=== PATIENT | male | born 1955 | race Caucasian/White ===

== ENCOUNTER 2021-01-27 08:26 | Inpatient (IN) ==
--- NOTE | 2021-01-08 11:50 | PAT Medication Instructions ---
Medication Instructions Date of Service January 08, 2021 Home Medications acetaminophen [Tylenol Arthritis Pain] 1,300 mg PO Q12H PRN ascorbic acid (vitamin C) [Vitamin C] 500 mg PO QAM aspirin [Aspir-81] 81 mg PO QAM atorvastatin 20 mg PO PM cetirizine 10 mg PO QAM cholecalciferol (vitamin D3) [Vitamin D3] 50 mcg PO QAM cyanocobalamin (vitamin B-12) 1,000 mcg PO QAM fluticasone propionate 1 spray INTRANASAL QAM hydrochlorothiazide 25 mg PO QAM lactulose 30 g PO DAILY PRN melatonin 10 mg PO HS metformin 500 mg PO BID metoprolol tartrate 25 mg PO BID omeprazole 20 mg PO QAM ondansetron 4 mg PO Q6H PRN oxycodone 10 mg PO 5XD pregabalin 150 mg PO BID warfarin 7.5 mg PO UD warfarin 10 mg PO UD ASK your prescriber and surgeon warfarin 7.5 mg PO UD warfarin 10 mg PO UD DO NOT take the morning of surgery ascorbic acid (vitamin C) [Vitamin C] 500 mg PO QAM cetirizine 10 mg PO QAM cholecalciferol (vitamin D3) [Vitamin D3] 50 mcg PO QAM cyanocobalamin (vitamin B-12) 1,000 mcg PO QAM hydrochlorothiazide 25 mg PO QAM lactulose 30 g PO DAILY PRN metformin 500 mg PO BID Take morning of surgery With a small sip of water, OTHERWISE NOTHING TO EAT OR DRINK AFTER MIDNIGHT: acetaminophen [Tylenol Arthritis Pain] 1,300 mg PO Q12H PRN (okay to take up to 4 hours prior to surgery if needed) aspirin [Aspir-81] 81 mg PO QAM (unless told otherwise by surgeon) fluticasone propionate 1 spray INTRANASAL QAM metoprolol tartrate 25 mg PO BID omeprazole 20 mg PO QAM ondansetron 4 mg PO Q6H PRN (if needed) oxycodone 10 mg PO 5XD (okay to take up to 4 hours prior to surgery if needed) pregabalin 150 mg PO BID Take evening before surgery acetaminophen [Tylenol Arthritis Pain] 1,300 mg PO Q12H PRN (if needed) atorvastatin 20 mg PO PM lactulose 30 g PO DAILY PRN (if needed) melatonin 10 mg PO HS metformin 500 mg PO BID metoprolol tartrate 25 mg PO BID ondansetron 4 mg PO Q6H PRN (if needed) oxycodone 10 mg PO 5XD pregabalin 150 mg PO BID Other Notes If you have any questions please call us at [phone] or [phone] or [phone] or [phone]
--- NOTE | 2021-01-09 14:23 | Anesthesiology Consultation ---
Date of Service January 09, 2021 Assessment & Plan (1) Encounter for pre-operative examination: Chart Review Chart Review: Pending: Refer to Additional Notes / Consult section (pending surgeon PCP clearance and preop Covid testing results ) and Patient seen in Pre Admission Testing -Pending surgeon ordered PCP clearance (done earlier this week) - Check BSG AM DOS - Check coags AM DOS Per PAT appt on 01/09/21, pt denies recent travel. No known Covid positive contacts or Covid related symptoms. No known Covid infection in the past 90 days. Preop Covid testing scheduled 01/23/21= will await results. Educated on importance of self quarantining, social distancing and wearing mask in public both for the patient and household contacts. Teaching & Discussion Pre-Anesthesia Teaching/Discussion Notes: Instructed NPO after midnight before surgery,except medications with 15 cc of water. Medication instructions provided according to the [facility] guidelines. History Surgery Operation Date: 01/27/21 07:00 Proposed Procedures p Right Total Knee Arthroplasty - Mino Harper DO Height/Weight Height: 5 ft 10 in Weight: 134.8 kg Allergies Allergy/AdvReac Type Severity Reaction Status Date / Time gabapentin AdvReac Mild TIRED,LAZY Verified 01/08/21 11:04 Medications Home Medications Medication Instructions Recorded Confirmed Last Taken acetaminophen [Tylenol Arthritis 1,300 mg PO Q12H PRN 05/15/20 01/08/21 Unknown Pain] ascorbic acid (vitamin C) [Vitamin 500 mg PO QAM 05/15/20 01/08/21 Unknown C] aspirin [Aspir-81] 81 mg PO QAM 05/15/20 01/08/21 Unknown cholecalciferol (vitamin D3) 50 mcg PO QAM 05/15/20 01/08/21 Unknown [Vitamin D3] cyanocobalamin (vitamin B-12) 1,000 mcg PO QAM 05/15/20 01/08/21 Unknown fluticasone propionate 1 spray INTRANASAL QAM 05/15/20 01/08/21 Unknown hydrochlorothiazide 25 mg PO QAM 05/15/20 01/08/21 Unknown lactulose 30 g PO DAILY PRN 05/15/20 01/08/21 Unknown melatonin 10 mg PO HS 05/15/20 01/08/21 Unknown metoprolol tartrate 25 mg PO BID 05/15/20 01/08/21 Unknown omeprazole 20 mg PO QAM 05/15/20 01/08/21 Unknown ondansetron 4 mg PO Q6H PRN 05/15/20 01/08/21 Unknown oxycodone 10 mg PO 5XD 05/15/20 01/08/21 Unknown pregabalin 150 mg PO BID 05/15/20 01/08/21 Unknown warfarin 7.5 mg PO UD 05/15/20 01/08/21 Unknown warfarin 10 mg PO UD 01/08/21 01/08/21 Unknown atorvastatin See Rx Instructions .ROUTE .COMPLEX 01/09/21 01/09/21 Unknown lidocaine 2 patch TOPICAL DAILY 01/09/21 01/09/21 Unknown loratadine 10 mg PO DAILY 01/09/21 01/09/21 Unknown metformin 1,000 mg PO BID 01/09/21 01/09/21 Unknown polyvinyl alcohol [Artificial 1 drp QID PRN 01/09/21 01/09/21 Unknown Tears (polyvin alc)] sildenafil 100 mg PO DAILY PRN 01/09/21 01/09/21 Unknown Past Medical History Medical History (Updated 01/09/21 @ 15:14 by Veronica Mack PA-C) Atrial fibrillation HX OF- S/P ABLATION ON COUMADIN Chronic back pain LLE radiculopathy Diabetes mellitus, type 2 Well controlled and stable DVT (deep venous thrombosis) post-op left KNEE surgery (1999) X 2- ON Coumadin- no issues since Enlargement of thyroid s/p needle biopsy- under observation - had thyroid u/s last week- scheduled for biopsy in future GERD (gastroesophageal reflux disease) Well controlled and stable Hyperlipidemia Hypertension Myocardial Infarction "silent" OR dx years ago Sleep apnea CPAP Exercise / Class Metabolic Activity III < 4 Walking/Shop/Light housework (no chest pain or SOB with flat surface ambulation- uses cane ) Past Family History Family History Other No family history of adverse response to anesthesia Past Surgical History Surgical History History of cardiac radiofrequency ablation 2013 ([facility]) History of colonoscopy History of herniorrhaphy UMBILICAL AND HIATAL HERNIA REPAIR History of tooth extraction History of total knee replacement LEFT Hx of LASIK Past Anesthesia History No Hx of Anesthesia Complications (with exception - many years ago- was being put under general anesthesia and could not breath prior to being put under ) and No Family Hx of Anesthesia Complications History of PONV No Hx of PONV and No Hx of Motion Sickness Social History Smoking Status: Former smoker Do You Dip or Chew Tobacco: No Smoking End Date: 38 YEARS AGO Hx Alcohol Use: Yes Alcohol type: beer alcohol intake frequency: a few times a month Hx Substance Use: No Review of Systems RITCHIE- chronic and stable Hx of blood transfusion- when in [place] Patient denies chest pain, shortness of breath, cough, wheezing, palpitations. No hx of seizures, stroke. Physical Exam Vital Signs VITALS BP144/80 P 80 TEMP 98.4 SP02 94% RESP 16 Constitutional no acute distress ENMT Mouth: no TMJ clicking Thyromental Distance: > or= 3.5 Finger Breadths (4.0) Mallampati Class: II Partial denture on top and bottom Neck neck extension not limited Respiratory normal respiratory effort; no respiratory distress Auscultation: lungs clear to auscultation bilaterally; no wheezes Cardiovascular Rate/Rhythm: regular rate and regular rhythm Heart Sounds: no murmur Vessels: no carotid bruit Musculoskeletal Spine: no pain with cervical ROM Extremities: extremities normal to inspection Psychiatric Orientation: alert Testing Laboratory Results 01/09/21 15:04 01/09/21 15:01 PT 22.3 Seconds (9.0-12.0) H 01/09/21 15:04 INR 2.4 (0.9-1.1) H 01/09/21 15:04 APTT 44.0 Seconds (21.0-31.0) H 01/09/21 15:04 Hemoglobin A1c 6.1 % (4.5-5.6) H 01/09/21 15:04 Urine Color Yellow 01/09/21 15:04 Urine Appearance Clear (Clear) 01/09/21 15:04 Urine pH 5.0 (4.5-7.5) 01/09/21 15:04 Ur Specific [place] 1.018 (1.000-1.030) 01/09/21 15:04 Urine Protein Negative (Negative) 01/09/21 15:04 Urine Glucose (UA) Negative (Negative) 01/09/21 15:04 Urine Ketones Negative (Negative) 01/09/21 15:04 Urine Nitrite Negative (Negative) 01/09/21 15:04 Ur Leukocyte Esterase Negative (Negative) 01/09/21 15:04 Blood Type O Negative 01/09/21 15:04 Antibody Screen NEGATIVE 01/09/21 15:04 12/17/20= HGB A1C= 6.1 Electrocardiogram Date: 01/09/21 Findings: + NSR @ (74bpm) Normal EKG. Chest X-Ray Date: 01/09/21 Findings: + NAD and + cardiomegaly (mild) FINDINGS: No pneumothorax or pleural effusion is noted. No consolidation is identified. There is no evidence for pulmonary edema. There is mild cardiome lucinda. Widening of the right paratracheal stripe is unchanged and likely due to vessels. Echocardiogram Date: 04/12/17 LV Function: normal RWMA: + none Other Findings: no LVH EF 60%. No RWMA. Mild MR. Mild TR. Moderate pulmonary HTN. Consistent with elevated RAP. Stress Test Date: 05/24/20 Type: nuclear SPECT perfusion imaging demonstrates no evidence of ischemia or infarct. Gated imaging demonstrates normal LV wall motion and contractility. LVEF 70%.
--- NOTE | 2021-01-09 15:26 | XRay Report ---
XR chest Pre-admission PA/Lat CLINICAL HISTORY: Preoperative evaluation. COMPARISON STUDY: Chest radiograph May 23, 2020. FINDINGS: No pneumothorax or pleural effusion is noted. No consolidation is identified. There is no e vidence for pulmonary edema. There is mild cardiomegaly. Widening of the right paratracheal stripe is unchanged and likely due to vessels. IMPRESSION: 1. No acute cardiopulmonary findings. 2. Mild cardiomegaly. ACT 112: Negative or not required by law. Electronically signed by: Shawn Anderson M.D. 01/09/2021 3:25 PM
[2021-01-09 16:12] LABS: Basophils # (auto) 0.04 K/uL (0-0.2); Basophils % (auto) 0.5 %; Eosinophils # (auto) 0.67 K/uL (0-0.5); Eosinophils % (auto) 8.5 %; Hemoglobin 13.6 g/dL (14.0-18.0); Immature Granulocytes # (auto) 0.01 K/uL (0.00-0.02); Immature Granulocytes % (auto) 0.1 %; Lymphocytes # (auto) 2.03 K/uL (1.2-3.4); Lymphocytes % (auto) 25.8 %; Mean Corpuscular Hemoglobin 29.8 pg (25-34); Mean Corpuscular Volume 87.5 fL (80-100); Mean Platelet Volume 10.3 fL (7.4-10.4); Monocytes # (auto) 0.93 K/uL (0.11-0.59); Monocytes % (auto) 11.8 %; Neutrophils # (auto) 4.18 K/uL (1.4-6.5); Neutrophils % (auto) 53.3 %; Platelet Count 228 K/uL (130-400); RDW Coefficient of Variation 14.5 % (11.5-14.5); RDW Standard Deviation 46.5 fL (36.4-46.3); Red Blood Count 4.57 M/uL (4.7-6.1); White Blood Count 7.86 K/uL (4.8-10.8)
[2021-01-09 16:13] LABS: Appearance Urine Clear (Clear); Bilirubin Urine Negative (Negative); Blood Urine Negative (Negative); Color Urine Yellow; Glucose Urine UA Negative (Negative); Ketones Urine Negative (Negative); Leukocyte Esterase Urine Negative (Negative); Nitrite Urine Negative (Negative); Protein Urine Negative (Negative); Specific Gravity Urine 1.018 (1.000-1.030); Urobilinogen Urine Negative (Negative)
--- NOTE | 2021-01-09 16:25 | Electrocardiogram Report ---
Test Reason : Blood Pressure : / mmHG Vent. Rate : 074 BPM Atrial Rate : 074 BPM P-R Int : 168 ms QRS Dur : 088 ms QT Int : 396 ms P-R-T Axes : 064 067 045 degrees QTc Int : 439 ms Normal sinus rhythm Normal ECG No previous ECGs available Confirmed by Bill Croft ([id number]) on 01/09/2021 4:25:01 PM Referred By: Mino Harper Confirmed By:Bill Croft
[2021-01-09 16:26] LABS: Albumin Level 3.4 gm/dl (3.4-5.0); BUN Creatinine Ratio 13.1 (10-20); Creatinine Clr Calc Pharmacy 96.6 ml/min; Est GFR (African American) 86.3; Est GFR (Non-African American) 74.5; Potassium 4.4 mmol/L (3.5-5.1)
[2021-01-09 16:27] LABS: INR 2.4 (0.9-1.1); Partial Thromboplastin Ratio 1.7; Prothrombin Time 22.3 Seconds (9.0-12.0)
[2021-01-10 05:40] LABS: Estimated Average Glucose 128 mg/dl; Hemoglobin A1C 6.1 % (4.5-5.6)
--- NOTE | 2021-01-23 20:49 | History & Physical Report ---
Date of Service January 27, 2021 Assessment & Plan (1) Degenerative joint disease of knee, right: I have indicated the patient for right total knee replacement. The risks, benefits and complications of surgery were explained to the patient which include but not limited to infection, acute blood loss, DVT/PE, injury to nerves, vessels, bone, soft tissue, arthrofibrosis, chronic pain, failure of the prosthesis, knee dislocation, leg length discrepancy, need for additional surgery, cardiac and pulmonary events and . The patient wished to proceed with surgery and informed consent was obtained at this time. We will plan for Lovenox -->warfarin post-operatively for DVT prophylaxis. Upon discharge the patient will be discharged home with home health services. Appropriate clearances by PCP, cardiology were obtained. History of Present Illness Chief Complaint: Right knee pain/DJD Primary Care Provider: Luca Saldaña MD The patient is a 65 year old male who presents with complaints of severe right knee pain and DJD. The patient has failed outpatient conservative treatments to this point which included NSAIDs, IA corticosteroid injection, bracing, PT/HEP. The patient's pain and limited function have progressed to the point where they severely hinder their activities of daily living and they no longer tolerate exercise programs. They are requesting to proceed with total knee replacement surgery. Allergies Allergy/AdvReac Type Severity Reaction Status Date / Time gabapentin AdvReac Mild TIRED,LAZY Verified 01/27/21 09:05 Home Medications Medication Instructions Recorded Confirmed Type acetaminophen [Tylenol Arthritis 1,300 mg PO Q12H PRN 05/15/20 01/08/21 History Pain] ascorbic acid (vitamin C) [Vitamin 500 mg PO QAM 05/15/20 01/08/21 History C] aspirin [Aspir-81] 81 mg PO QAM 05/15/20 01/08/21 History cholecalciferol (vitamin D3) 50 mcg PO QAM 05/15/20 01/08/21 History [Vitamin D3] cyanocobalamin (vitamin B-12) 1,000 mcg PO QAM 05/15/20 01/08/21 History fluticasone propionate 1 spray INTRANASAL QAM 05/15/20 01/08/21 History hydrochlorothiazide 25 mg PO QAM 05/15/20 01/08/21 History lactulose 30 g PO DAILY PRN 05/15/20 01/08/21 History melatonin 10 mg PO HS 05/15/20 01/08/21 History metoprolol tartrate 25 mg PO BID 05/15/20 01/08/21 History omeprazole 20 mg PO QAM 05/15/20 01/08/21 History ondansetron 4 mg PO Q6H PRN 05/15/20 01/08/21 History oxycodone 10 mg PO 5XD 05/15/20 01/08/21 History pregabalin 150 mg PO BID 05/15/20 01/08/21 History warfarin 7.5 mg PO UD 05/15/20 01/08/21 History warfarin 10 mg PO UD 01/08/21 01/08/21 History atorvastatin See Rx Instructions .ROUTE .COMPLEX 01/09/21 01/09/21 History lidocaine 2 patch TOPICAL DAILY 01/09/21 01/09/21 History loratadine 10 mg PO DAILY 01/09/21 01/09/21 History metformin 1,000 mg PO BID 01/09/21 01/09/21 History polyvinyl alcohol [Artificial 1 drp QID PRN 01/09/21 01/09/21 History Tears (polyvin alc)] sildenafil 100 mg PO DAILY PRN 01/09/21 01/09/21 History Past Med/Surg History Medical History Atrial fibrillation HX OF- S/P ABLATION ON COUMADIN Chronic back pain LLE radiculopathy Diabetes mellitus, type 2 Well controlled and stable DVT (deep venous thrombosis) post-op left KNEE surgery (1999) X 2- ON Coumadin- no issues since Enlargement of thyroid s/p needle biopsy- under observation - had thyroid u/s last week- scheduled for biopsy in future GERD (gastroesophageal reflux disease) Well controlled and stable Hyperlipidemia Hypertension Myocardial Infarction "silent" ID dx years ago Sleep apnea CPAP Surgical History History of cardiac radiofrequency ablation 2013 ([facility]) History of colonoscopy History of herniorrhaphy UMBILICAL AND HIATAL HERNIA REPAIR History of tooth extraction History of total knee replacement LEFT Hx of LASIK Family History Other No family history of adverse response to anesthesia Social History Smoking Status: Former smoker Smoking End Date: 38 YEARS AGO; Second Hand Exposure: Yes (SPOUSE SMOKES "DOESN'T SMOKE IN HOUSE OR AROUND ME"); Do You Dip or Chew Tobacco: No; Tobacco Cessation Education Requested by Patient: No Hx Alcohol Use: Yes Alcohol type: beer Hx Substance Use: No Preferred Language: Nepali Communication Ability: Effective Studio Coordinator Required: No Beliefs That Will Affect Care: None Current Living Situation: Spouse Feels Safe at Home: Yes Safety Concerns: Feels Safe At This Time Assistive Devices: Cane, Contacts, CPAP and Glasses Assistive Devices Comment: PARTIAL UPPER AND LOWER PLATE Review of Systems Review of Systems: All systems reviewed & are unremarkable except as noted in HPI & below Constitutional: as per Subjective / HPI Physical Exam Physical Exam: RLE NVSI +EHL/FHL/TA/GS SILT grossly, +2 DP pulse, compartments soft NT, limited painful ROM of the knee, 5-115 degrees flexion, +crepitus. Constitutional: WD/WN, vitals as above Eyes: PERRL, conjunctivae normal, anicteric sclerae ENMT: external ear and nose normal, oropharynx normal Neck: trachea midline, no thyromegaly Respiratory: normal respiratory effort, lungs clear to auscultation Cardiovascular: RRR, no murmur, no edema Gastrointestinal (Abdomen): normal bowel sounds, soft, nontender, no hepatosplenomegaly Musculoskeletal: no cyanosis or clubbing, extremities motor strength 5/5 Skin: no rashes, warm and dry Neurologic: patellar DTR's 2+ bilat, sensation intact Psychiatric: A+Ox3, euthymic affect Lymphatic: no cervical or axillary lymphadenopathy Results & Data Results & Data ([facility]) Diagnostic Findings Multiple views of the knee demonstrates severe tricompartmental DJD with complete loss of the lateral joint space. +osteophytes, +sclerosis, +subchondral cysts. Pre Admission Testing Addendum Laboratory Results 01/09/21 15:04 01/09/21 15:01 PT 22.3 Seconds (9.0-12.0) H 01/09/21 15:04 INR 2.4 (0.9-1.1) H 01/09/21 15:04 APTT 44.0 Seconds (21.0-31.0) H 01/09/21 15:04 Hemoglobin A1c 6.1 % (4.5-5.6) H 01/09/21 15:04 Urine Color Yellow 01/09/21 15:04 Urine Appearance Clear (Clear) 01/09/21 15:04 Urine pH 5.0 (4.5-7.5) 01/09/21 15:04 Ur Specific [place] 1.018 (1.000-1.030) 01/09/21 15:04 Urine Protein Negative (Negative) 01/09/21 15:04 Urine Glucose (UA) Negative (Negative) 01/09/21 15:04 Urine Ketones Negative (Negative) 01/09/21 15:04 Urine Nitrite Negative (Negative) 01/09/21 15:04 Ur Leukocyte Esterase Negative (Negative) 01/09/21 15:04 Blood Type O Negative 01/09/21 15:04 Antibody Screen NEGATIVE 01/09/21 15:04 01/09/21 15:04 Urine Culture - Final Urine,Clean Catch Three types of organisms present, all low counts probable skin shankar. No further identifications or sensitivities to follow.
[~2021-01-27 08:26] MED LIST: ACETAMINOPHEN 500 MG TAB PO SCH; BUPIVACAINE 0.25% 30 ML VIAL ONE; BUPIVACAINE 0.5 % 5 MG/1 ML PF 10ML VIAL ONE; BUPIVACAINE LIPOSOME/PF 266 MG, BUPIVACAINE/EPINEPHRINE 50 ML, SODIUM CHLORIDE 0.9% 30 ... INFIL SCH; CeleBREX 200 MG CAP PO SCH; FAMOTIDINE 20 MG TAB PO SCH; LR 500ML BOLUS, THEN 15ML/HR IV SCH; METOCLOPRAMIDE HCL 10 MG TABLET PO SCH; ROPIVACAINE 0.5% 5 MG/ML 30 ML VIAL ONE; ROPIVACAINE 0.5% HCL/PF 150 MG, BUPIVACAINE 0.75% MPF 20 ML, EPINEPHrine 30MG/30ML (OR ... INSTIL SCH; TRANEXAMIC ACID 1,000 MG **IV Intra-op IV SCH; TRANEXAMIC ACID 1,000 MG **IV Pre-op IV SCH; ceFAZolin 2000MG 2,000 MG/15 ML SYR IV SCH; dexAMETHasone 4 MG TAB PO SCH
[2021-01-27] MEDS ORDERED: LIDOCAINE 2% 20 MG/ML 5 ML SYR IV ONE (08:42)
[2021-01-27] MEDS ORDERED: PROPOFOL IV EMULSION 10 MG/ML 20 ML VIAL IV ONE ×4 (08:42→12:11)
[2021-01-27] MEDS ORDERED: MIDAZOLAM HCL 1 MG/ML 2ML VIAL ONE (08:43)
--- NOTE | 2021-01-27 09:17 | History & Physical Bridge Note ---
Date of Service January 27, 2021 History & Physical Bridge Note I have examined the patient, reviewed the History & Physical and in the interval since the performance of the History & Physical I have noted the following changes of clinical significance: no changes noted
[2021-01-27] MEDS ORDERED: ORTHO JOINT ANESTHETIC ONE (09:20)
[2021-01-27 09:52] LABS: INR 1.1 (0.9-1.1); Partial Thromboplastin Ratio 1.1; Partial Thromboplastin Time 28.5 Seconds (21.0-31.0); Prothrombin Time 10.7 Seconds (9.0-12.0)
[2021-01-27] MEDS ORDERED: ePHEDrine sulfate 50 MG/ML AMP IV PRN (10:36)
[2021-01-27] MEDS ORDERED: ATROPINE SULFATE 0.1 MG/ML 10ML SYR IV PRN (10:36)
[2021-01-27] MEDS ORDERED: KETAMINE 50 MG/5 ML SYRINGE ONE (11:17)
[2021-01-27] MEDS ORDERED: fentaNYL citrate 100 MCG/2 ML VIAL ONE (11:40)
--- NOTE | 2021-01-27 12:35 | Post Operative Brief Note ---
Immediate Post Op Note v1 Date of Surgery January 27, 2021 Pre & Post Diagnosis Operation Date: 01/27/21 10:40 Pre-Op Diagnosis: Unilateral Primary Osteoarthritis, Right Knee Post-Op Diagnosis: Unilateral Primary Osteoarthritis, Right Knee I identified the patient and participated in the time-out.: Yes Procedure Operation Date: 01/27/21 10:40 Actual Procedures p Right Total Knee Arthroplasty(Right) - Mino Harper DO Surgeon Mino Harper DO Pricing Strategist Zenon Fang Estimated Blood Loss 65 Findings Consistent with Post-Op Diagnosis Fluids See anesthesia report Specimens Proximal tibia and distal femur bone fragments Anesthesia Type Spinal MAC Complications none Disposition Disposition: Recovery Room Overlapping Procedure I was present for: the critical portions of procedure. I was immediately available: during the entire case. Back up surgeon: was not required during procedure.
--- NOTE | 2021-01-27 12:37 | Operative Report ---
Post Operative Report Pre & Post Diagnosis Operation Date: 01/27/21 10:40 Pre-Op Diagnosis: Unilateral Primary Osteoarthritis, Right Knee Post-Op Diagnosis: Unilateral Primary Osteoarthritis, Right Knee I identified the patient and participated in the time-out.: Yes Procedure Operation Date: 01/27/21 10:40 Actual Procedures p Right Total Knee Arthroplasty(Right) - Mino Harper DO Surgeon Mino Harper DO Radiologic Technology Instructor Zenon Fang Estimated Blood Loss 65 Findings Consistent with Post-Op Diagnosis Specimens Proximal tibia and distal femur bone fragment Anesthesia Type Spinal MAC Complications none Disposition Disposition: Recovery Room Indications The patient is a 59-year-old male presents with long history of severe right knee tricompartmental DJD and failed outpatient conservative treatments including NSAIDs, bracing, injections and home walking/exercise program. The patient's symptoms have progressed to the point where it has been difficult to perform normal activities of daily living. I have indicated the patient for a right total knee arthroplasty, the risks and benefits and complications of the procedure include but are not limited to infection bleeding damage to bone, nerves, vessels, surrounding soft tissue, blood clots, loss of function, leg length discrepancy, dislocation, failure of the components, need for additional surgery and . The patient wished to proceed with surgery at this time and informed consent was obtained. Appropriate clearances were obtained. Description of Procedure COMPONENTS USED: Diamante persona knee system: Femur size 10, Tibia size G with 30 mm extension, Tibial articulating surface 10 CPS, Patella 31mm oval Following induction of spinal anesthesia, a tourniquet was applied to the proximal aspect of the thigh and the patient's right leg was prepped and draped in the usual sterile manner. A timeout was performed, patient identified and site alexsander confirmed. Appropriate pre-operative IV antibiotics were given. The limb was exsanguinated with an Esmarch bandage and tourniquet was inflated to 300 mmHg. A longitudinal midline incision was made over the anterior knee. Subcutaneous tissue was sharply dissected down to fascia. Electrocautery was used for hemostasis. Next a parapatellar arthrotomy was performed. Patella was everted and the knee was flexed. A Caraballo retractor was used to expose the synovium above on the anterior aspect of the femur and removed down to bone. Next, the anterior fat pad was removed to aid in visualization. The medial face of the tibia was cleared of soft tissue first with a Bovie and a becker elevator. This tissue was retracted posteriorly using a blunt Hohmann. Next, the extra-medullary tibial cutting guide was placed to the anterior aspect of the tibia. The tibia resection level was set taking 2mm from the defective tibial condyle. Resection depth was once again confirmed with annalee wing. The medial and lateral collateral ligament was protected with two Hohmann retractors. The tibia guide was removed and proximal tibial bone fragment removed utilizing straight osteotome, electrocautery and Yoel. Next, the distal femur intramedullary canal was accessed utilizing the step drill. The intramedullary distal femur cutting guide was placed into the canal and pinned into place. The distal femur was cut on the 5 degree setting. Next the cutting guide was removed and the femur was sized. Care was taken to ensure appropriate surgical sales representative all rotation and 5 degree holes were drilled. A size 10 4-in-1 cutting block was placed on the distal end of the femur and secured into place with two short headed screws. Two bent Hohmann retractors were placed to protect the medial and lateral collateral ligaments. The oscillating saw was used to cut anterior, posterior, anterior chamfer and posterior chamfer. The four and one cutting block was removed and bone fragments excised. Laminar seismograph helper was placed laterally and the ACL and PCL were removed followed by the medial meniscus and posterior medial osteophytes. Aquamantys was utilized for any posterior medial bleeders and Orthomix injected into the posterior medial capsule. A laminar seismograph helper was then placed in the medial compartment and the lateral meniscus and posterior osteophytes were removed. Aquamantys was utilized for any posterior lateral bleeders and Orthomix injected into the posterior lateral capsule. Next, drop bri and spacer block were placed with the leg in flexion and extension to assess alignment and flexion/extension gaps. Next, the proximal tibia was assessed and two bent Hohmans were placed medial and lateral to aid in visualization. The appropriate tibia size and rotation was selected and a size G tibial plate was pinned into place with appropriate rotation. Preparation of the tibia was completed utilizing the matching tibial drill and broach. I then turned my attention back to the distal femur in a trial femoral component was impacted into place. Appropriate femoral width was assessed and selected. Next the femur PS box cut guide was placed and cut made with the reciprocal saw and the PS box provisional placed. A trial size 10 tibia articular tray was placed and varus-valgus balance assessed in 0 degrees of extension and 30, 60 and 90 degrees of flexion. A final tibial articular surface size 10 CPS was chosen. Assess was gained to the patella and caliper utilized to measure width. The patella reamer was utilized and remaining bone removed with oscillating saw. A size 31 mm oval patella button was selected and the patella pegs drilled. Trial patella button was placed and tracking was assessed. The knee was found to be well balanced, well aligned with excellent patella tracking. The trials were removed and final components were obtained and assembled. The knee was irrigated copiously with sterile saline solution mixed with bacitracin. Access to the proximal tibia was once again obtained utilizing to the Hohmans and the proximal tibia and distal femur were dried with lap sponges. The final components were cemented into place and all excess cement was removed. A trial tibial articular surface was placed while cemented hardened. Knee stability was once again assessed and the final component inserted. A Betadine soak was performed. After 3 minutes, the knee was once more irrigated with copious sterile saline solution with bacitracin. The knee was injected with the remaining Orthomix which includes a combination of Ropivicaine 0.5% 150mg, Bupivicaine 0.5%/Epinephrine 1:200,000 30ml, Toradol 30mg, Dexamethasone 4mg, Ketamine 10mg, Clonidine 100mcg and NSS 30ml solution. The capsulotomy was closed with #1 Vicryl followed by subcutaneous closure with 2-0 Vicryl suture and a 3-0 V-lock suture. Skin closure was performed using todd and a sterile dry dressing was applied which included Silverlon, web roll and Paul wrap. Tourniquet was deflated at 99 minutes. The patient tolerated the procedure well and was taken to the PACU in stable condition. Due to the complex nature of the procedure, the entire surgery was performed with the operational assistance of Zenon Fang PA-C. The assistant office manager, under direct supervision, was involved in the actual performance of all aspects of the surgical procedure including patient positioning, hemostasis, tissue re traction, instrument management and wound closure. I attest to the content of the Intraoperative Record and any orders documented therein. Any exceptions are noted below.
--- NOTE | 2021-01-27 13:38 | Anesthesiology Progress Note ---
Date of Service January 27, 2021 Anesthesia Post Procedure Vital Signs Vital Signs: Temp Pulse Pulse Resp BP Pulse Ox 01/27/21 13:25 72 11 L 153/84 H 98 01/27/21 13:15 77 11 L 158/81 H 97 01/27/21 13:05 36.5 C 84 16 149/78 H 97 01/27/21 09:22 36.6 C 75 18 152/85 H 96 Transfer of Care Handoff Completed per policy Notes Mental Status: alert / awake / arousable and participated in evaluation Nausea / Vomiting: adequately controlled Pain: adequately controlled Airway Patency, RR, SpO2: stable & adequate BP & HR: stable & adequate Hydration State: stable & adequate Neuraxial Anesthesia: was administered and sensory block is resolving Anesthetic Complications: no major complications apparent and Pt Satisfied with anesthetic care
--- NOTE | 2021-01-27 13:55 | XRay Report ---
XR knee RT 1 or 2V routine CLINICAL HISTORY: Postoperative evaluation. COMPARISON: None FINDINGS: Alignment of the total right knee arthroplasty is anatomic. There is no periprosthetic fra cture or unexpected radiopaque foreign body. There are skin todd. IMPRESSION: Expected findings following total right knee arthroplasty. ACT 112: Negative or not required by law. Electronically signed by: Shawn Anderson M.D. 01/27/2021 1:54 PM
[2021-01-27] MEDS ORDERED: METOCLOPRAMIDE HCL INJ 5 MG/ML 2 ML VIAL IV PRN (14:01)
[2021-01-27] MEDS ORDERED: NALOXONE HCL 0.4 MG/1 ML VIAL/CARP IV PRN (14:01)
[2021-01-27] MEDS ORDERED: bisacodyL 10 MG SUPP PR PRN (14:01)
[2021-01-27] MEDS ORDERED: ONDANSETRON INJ 2 MG/ML 2 ML VIAL IV PRN (14:01)
[2021-01-27] MEDS ORDERED: MAGNESIUM HYDROXIDE SUSP 30 ML UDC PO PRN (14:01)
[2021-01-27] MEDS ORDERED: HYDROmorphone INJ 0.5 MG/0.5 ML SYR IV PRN (14:01)
[2021-01-27] MEDS ORDERED: diphenhydrAMINE Capsule 25 MG CAP PO PRN (14:01)
[2021-01-27] MEDS ORDERED: MELATONIN 3 MG TAB PO PRN (14:24)
[2021-01-27] MEDS ORDERED: PHARMACY GLYCEMIC MGMT CONSULT PRN (14:25)
[2021-01-27] MEDS ORDERED: DEXTROSE 50% 50 ML SYRINGE IV PRN (14:30)
[2021-01-27] MEDS ORDERED: GLUCAGON FOR INJ 1 MG VIAL IM PRN (14:30)
[2021-01-27] MEDS ORDERED: GLUCOSE 10 TABS/TUBE PO PRN (14:30)
[2021-01-27] MEDS ORDERED: CARBOHYDRATES FOR HYPOGLYCEMIA PO PRN (14:30)
[2021-01-27] MEDS ORDERED: GLUCOSE 40% GEL 15 GM TUBE PO PRN (14:30)
--- NOTE | 2021-01-27 14:35 | Pharmacy Report ---
Pharmacy Glycemic Short Note 2 - Date of Service January 27, 2021 - Glycemic Short BSG Results (Last 24 hours): 01/27/21 01/27/21 09:14 13:12 POC Glucose 100 H 118 H OUTPATIENT ANTIDIABETIC REGIMEN: * Metformin 1000 mg PO BIDM * HbA1c: 6.1% (01/09/21) ASSESSMENT: * DOUGIE is a 65 year old male POD #0 s/p right total knee arthroplasty * Received dexamethasone 8 mg PO + intra-articular ortho-mix containing dexamethasone intraoperatively * BSGs today of 100 and 118 mg/dL * Will give one-time lantus dose ~0.1 unit/kg to help cover hyperglycemic effects of steroids * Anticipate switch to metformin 1 g PO BIDM - possible tomorrow morning PLAN FOR INPATIENT GLYCEMIC CONTROL: * Hold outpatient oral diabetes medications * Basal insulin * Lantus 15 units SC x 1 * Bolus insulin * NovoLog per scale ACHS or Q6hrs while NPO * Goal Range: Low 110 mg/dL - High 140 mg/dL * Correction Factor: 20 mg/dL/unit * Nutritional / Prandial insulin per carb ratio of 1 unit per 6 grams CHO consumed PLAN FOR DISCHARGE: * HbA1c of 6.1% demonstrates excellent outpatient glycemic control * Continue metformin 1000 mg PO BIDM
[2021-01-27] MEDS ORDERED: LANTUS PER UNIT CHARGE SQ ONE (14:45)
[2021-01-27] MEDS: SODIUM CHLORIDE 0.9% 1000ML 1,000 ML IV SCH (15:28)
[2021-01-27] MEDS: INSULIN ASPART 100 UNITS/ML 3 ML PEN SC SCH ×3 (15:41→21:10)
[2021-01-27] MEDS: oxyCODONE HCL IR 5 MG TAB (IMMEDIATE RELEASE) PO PRN ×2 (15:47→19:33)
[2021-01-27] MEDS ORDERED: NURSING DECISION MEDICATION ONE (15:49)
[2021-01-27] MEDS ORDERED: COUGH DROP (SUGAR FREE) LOZ 24 LOZ/1 BOX BUCCAL PRN (15:52)
[2021-01-27] MEDS ORDERED: WARFARIN SOD 10 MG TAB PO SCH (16:00)
[2021-01-27] MEDS ORDERED: WARFARIN SOD 7.5 MG TAB PO SCH (16:00)
[2021-01-27] MEDS: ceFAZolin 3,000 MG in DEXTROSE 5% 50 ML IV SCH (17:52)
--- NOTE | 2021-01-27 17:57 | Anesthesiology Progress Note ---
Date of Service January 27, 2021 Anesthesia Post Procedure Vital Signs Vital Signs: Temp Pulse Pulse Resp BP Pulse Ox 01/27/21 16:38 83 16 156/74 H 93 01/27/21 15:10 79 16 150/87 H 95 01/27/21 13:50 36.9 C 74 16 139/87 92 01/27/21 13:35 36.6 C 76 14 158/88 H 95 01/27/21 13:25 72 11 L 153/84 H 98 01/27/21 13:15 77 11 L 158/81 H 97 01/27/21 13:05 36.5 C 84 16 149/78 H 97 01/27/21 09:22 36.6 C 75 18 152/85 H 96 Transfer of Care Handoff Completed per policy Notes Mental Status: alert / awake / arousable and participated in evaluation Patient Amnestic to Procedure: Yes Nausea / Vomiting: adequately controlled Pain: adequately controlled Airway Patency, RR, SpO2: stable & adequate BP & HR: stable & adequate Hydration State: stable & adequate Anesthetic Complications: no major complications apparent and Pt Satisfied with anesthetic care
--- NOTE | 2021-01-27 18:26 | Orthopedic Progress Note ---
Date of Service January 27, 2021 Assessment & Plan (1) Degenerative joint disease of knee, right: Status post right total knee arthroplasty -Ancef x24 -DVT prophylaxis: SCDs, teds, Lovenox--> Warfarin -Weight-bear as tolerated right lower extremity -PT/OT -Postoperative x-ray demonstrates a well aligned well fixed prosthesis without fracture or dislocation -A.m. labs -DC planning Admission and Anticipated Discharge Date Admission Date: January 27, 2021 Subjective Post Operative Progress Note Patient seen sitting up in bed, comfortable, denies complaints, pain well controlled, no acute issues. Review of Systems Review of Systems: All systems reviewed & are unremarkable except as noted in HPI & below Constitutional: as per Subjective / HPI Physical Exam Physical Exam: RLE NVSI +EHL/FHL/TA/GS SILT grossly, +2 DP pulse, compartments soft NT, dressing cdi. Constitutional: WD/WN, vitals as above Results & Data ([facility]) Vital Signs (Past 12 Hours) Vital Signs Temp Pulse Pulse Resp BP Pulse Ox 01/27/21 16:38 83 16 156/74 H 93 01/27/21 15:10 79 16 150/87 H 95 01/27/21 13:50 36.9 C 74 16 139/87 92 01/27/21 13:35 36.6 C 76 14 158/88 H 95 01/27/21 13:25 72 11 L 153/84 H 98 01/27/21 13:15 77 11 L 158/81 H 97 01/27/21 13:05 36.5 C 84 16 149/78 H 97 01/27/21 09:22 36.6 C 75 18 152/85 H 96
[2021-01-27] MEDS ORDERED: SENNA 8.6 MG TAB PO SCH (21:00)
[2021-01-27] MEDS: METOPROLOL TARTRATE 25 MG TAB PO SCH (21:13)
[2021-01-27] MEDS: PREGABALIN 150 MG CAP PO SCH (21:13)
[2021-01-27] MEDS: DOCUSATE SODIUM 100 MG CAP PO SCH (21:14)
[2021-01-27] MEDS: ACETAMINOPHEN 500 MG TAB PO SCH (21:14)
[2021-01-28] MEDS: oxyCODONE HCL IR 5 MG TAB (IMMEDIATE RELEASE) PO PRN ×3 (00:06→11:18)
[2021-01-28] MEDS: SODIUM CHLORIDE 0.9% 1000ML 1,000 ML IV SCH (01:51)
[2021-01-28] MEDS: ceFAZolin 3,000 MG in DEXTROSE 5% 50 ML IV SCH (02:06)
[2021-01-28] MEDS: ACETAMINOPHEN 500 MG TAB PO SCH (05:45)
[2021-01-28 07:57] LABS: Hematocrit (blood only) 36.1 % (42-52); Hemoglobin 12.2 g/dL (14.0-18.0); Mean Corpuscular Hemoglobin 29.3 pg (25-34); Mean Corpuscular Hgb Conc 33.8 g/dL (32-36); Mean Corpuscular Volume 86.8 fL (80-100); Mean Platelet Volume 10.4 fL (7.4-10.4); Platelet Count 250 K/uL (130-400); RDW Coefficient of Variation 14.4 % (11.5-14.5); RDW Standard Deviation 45.6 fL (36.4-46.3); Red Blood Count 4.16 M/uL (4.7-6.1); White Blood Count 14.91 K/uL (4.8-10.8)
[2021-01-28 08:05] LABS: INR 1.1 (0.9-1.1); Prothrombin Time 11.2 Seconds (9.0-12.0)
[2021-01-28 08:25] LABS: BUN Creatinine Ratio 18.6 (10-20); Calcium 9.2 mg/dl (8.5-10.1); Creatinine Clr Calc Pharmacy 116.3 ml/min; Est GFR (African American) 104.7; Est GFR (Non-African American) 90.4
[2021-01-28] MEDS ORDERED: ATORVASTATIN 10 MG TAB PO SCH (09:00)
[2021-01-28] MEDS ORDERED: LORATADINE 10 MG TAB PO SCH (09:00)
[2021-01-28] MEDS ORDERED: ENOXAPARIN INJ 60 MG/0.6 ML SYR SQ SCH (09:00)
[2021-01-28] MEDS ORDERED: hydroCHLOROthiazide 25 MG TAB PO SCH (09:00)
[2021-01-28] MEDS ORDERED: PANTOprazole 40 MG TAB PO SCH (09:00)
[2021-01-28] MEDS ORDERED: MULTIVITAMIN TAB PO SCH (09:00)
[2021-01-28] MEDS: DOCUSATE SODIUM 100 MG CAP PO SCH (09:19)
[2021-01-28] MEDS: METOPROLOL TARTRATE 25 MG TAB PO SCH (09:22)
[2021-01-28] MEDS: PREGABALIN 150 MG CAP PO SCH (09:25)
[2021-01-28] MEDS: INSULIN ASPART 100 UNITS/ML 3 ML PEN SC SCH ×2 (09:30→13:15)
--- NOTE | 2021-01-28 13:33 | Orthopedic Progress Note ---
Date of Service January 28, 2021 Assessment & Plan (1) Degenerative joint disease of knee, right: Status post right total knee arthroplasty POD#1 -Ancef x24 -DVT prophylaxis: SCDs, teds, Lovenox--> Warfarin -Weight-bear as tolerated right lower extremity -PT/OT -Postoperative x-ray demonstrates a well aligned well fixed prosthesis without fracture or dislocation -A.m. labs - as above, hgb 12.2 -DC planning - home with Admission and Anticipated Discharge Date Admission Date: January 27, 2021 Subjective Post Operative Progress Note Patient seen sitting up in bed, comfortable, denies complaints, pain well controlled, no acute issues. Review of Systems Review of Systems: All systems reviewed & are unremarkable except as noted in HPI & below Constitutional: as per Subjective / HPI Physical Exam Physical Exam: RLE NVSI +EHL/FHL/TA/GS SILT grossly, +2 DP pulse, compartments soft NT, dressing cdi. Constitutional: WD/WN, vitals as above Results & Data ([facility]) Vital Signs (Past 12 Hours) Vital Signs Temp Pulse Pulse Resp BP Pulse Ox 01/28/21 11:22 36.6 C 76 79 18 117/75 94 01/28/21 07:47 36.6 C 79 18 117/75 94 01/28/21 03:17 36.5 C 72 18 144/79 H 94 Laboratory Results 01/28/21 01/28/21 01/28/21 Range/Units 11:52 08:28 07:08 WBC (4.8-10.8) K/uL RBC (4.7-6.1) M/uL Hgb (14.0-18.0) g/dL Hct (42-52) % MCV (80-100) fL MCH (25-34) pg MCHC (32-36) g/dL RDW Std Deviation (36.4-46.3) fL RDW Coeff of Byron (11.5-14.5) % Plt Count (130-400) K/uL MPV (7.4-10.4) fL PT (9.0-12.0) Seconds INR (0.9-1.1) Sodium 139 (136-145) mmol/L Potassium 4.0 (3.5-5.1) mmol/L Chloride 108 H (98-107) mmol/L Carbon Dioxide 26 (21-32) mmol/L Anion Gap 5.0 (3-11) BUN 16 (7-18) mg/dl Creatinine 0.86 (0.6-1.4) mg/dl Est Cr Clr Drug Dosing 116.3 ml/min Est GFR ( Amer) 104.7 Est GFR (Non-Af Amer) 90.4 BUN/Creatinine Ratio 18.6 (10-20) Glucose 119 H (70-99) mg/dl POC Glucose 96 121 H (70-99) mg/dl Calcium 9.2 (8.5-10.1) mg/dl 01/28/21 01/28/21 01/27/21 Range/Units 07:08 07:08 20:46 WBC 14.91 H (4.8-10.8) K/uL RBC 4.16 L (4.7-6.1) M/uL Hgb 12.2 L (14.0-18.0) g/dL Hct 36.1 L (42-52) % MCV 86.8 (80-100) fL MCH 29.3 (25-34) pg MCHC 33.8 (32-36) g/dL RDW Std Deviation 45.6 (36.4-46.3) fL RDW Coeff of Byron 14.4 (11.5-14.5) % Plt Count 250 (130-400) K/uL MPV 10.4 (7.4-10.4) fL PT 11.2 (9.0-12.0) Seconds INR 1.1 (0.9-1.1) Sodium (136-145) mmol/L Potassium (3.5-5.1) mmol/L Chloride (98-107) mmol/L Carbon Dioxide (21-32) mmol/L Anion Gap (3-11) BUN (7-18) mg/dl Creatinine (0.6-1.4) mg/dl Est Cr Clr Drug Dosing ml/min Est GFR ( Amer) Est GFR (Non-Af Amer) BUN/Creatinine Ratio (10-20) Glucose (70-99) mg/dl POC Glucose 174 H (70-99) mg/dl Calcium (8.5-10.1) mg/dl 01/27/21 Range/Units 17:52 WBC (4.8-10.8) K/uL RBC (4.7-6.1) M/uL Hgb (14.0-18.0) g/dL Hct (42-52) % MCV (80-100) fL MCH (25-34) pg MCHC (32-36) g/dL RDW Std Deviation (36.4-46.3) fL RDW Coeff of Byron (11.5-14.5) % Plt Count (130-400) K/uL MPV (7.4-10.4) fL PT (9.0-12.0) Seconds INR (0.9-1.1) Sodium (136-145) mmol/L Potassium (3.5-5.1) mmol/L Chloride (98-107) mmol/L Carbon Dioxide (21-32) mmol/L Anion Gap (3-11) BUN (7-18) mg/dl Creatinine (0.6-1.4) mg/dl Est Cr Clr Drug Dosing ml/min Est GFR ( Amer) Est GFR (Non-Af Amer) BUN/Creatinine Ratio (10-20) Glucose (70-99) mg/dl POC Glucose 141 H (70-99) mg/dl Calcium (8.5-10.1) mg/dl
--- NOTE | 2021-01-28 23:08 | Discharge Summary ---
Date of Service January 28, 2021 Admission HPI Per Admitting Provider The patient is a 65 year old male who presents with complaints of severe right knee pain and DJD. The patient has failed outpatient conservative treatments to this point which included NSAIDs, IA corticosteroid injection, bracing, PT/HEP. The patient's pain and limited function have progressed to the point where they severely hinder their activities of daily living and they no longer tolerate exercise programs. They are requesting to proceed with total knee replacement surgery. Principal Diagnosis Right total knee replacement Discharge Exam RLE NVSI +EHL/FHL/TA/GS SILT grossly, +2 DP pulse, compartments soft NT, dressing cdi. Constitutional WD/WN, vitals as above Discharge Data Allergies Allergy/AdvReac Type Severity Reaction Status Date / Time gabapentin AdvReac Mild TIRED,LAZY Verified 01/27/21 09:05 Procedures Performed Operation Date: 01/27/21 10:40 Actual Procedures p Right Total Knee Arthroplasty(Right) - Mino Harper DO Ordered Studies 01/27/21 05:00 US - OR guided needle placemen Routine Hospital Course (1) Degenerative joint disease of knee, right: The patient is a 65 -year-old male who presents with long standing history of severe right knee DJD and failed outpatient conservative treatments. The patient's symptoms have progressed to the point where it has been difficult to perform even normal activities of daily living. I indicated the patient for a right total knee arthroplasty, the risks, benefits and complications of the procedure include but not limited to infection, bleeding, damage to bone, nerves, vessels, surrounding soft tissue, may develop blood clots, loss of function, leg length discrepancy, dislocation, failure of the components, loosening of the components, the need for additional surgery and . The patient wished to proceed with surgery at this time and informed consent was obtained. Hospital Course: On 01/27/21 the patient was taken to the operating room, adequate anesthesia administered and underwent a right total knee arthroplasty. The patient tolerated the procedure well and was taken to the PACU in stable condition. Post-operatively the patient was started on a DVT ppx medication and given appropriate IV antibiotics. Consults were placed to physical therapy, occupational therapy and case management. On POD#1, the patient did well overnight and their pain was well controlled. Labs were drawn and the Hgb was 12.2. The patient progressed well with PT. Dressings were changed at this time and the incision was clean, dry and intact. The patients hospital stay was relatively uneventful and they were deemed stable by the orthopedic team and consultants to be discharged home with HH on 01/28/21. Discharge Instructions: Upon discharge the patient may weight bear as tolerates through their operative extremity. They were instructed to keep the incision clean and dry at all times. The patient may shower but should not submerge the incision, avoid bathing, pools and hot tubs. The patient was given a script for pain medication and should take as instructed. The patient was given a script for DVT ppx Lovenox and should take as directed, the patient's home medication Warfarin was restarted. The patient was instructed to not drive or travel for long distances until cleared to do so. If the patient develops any symptoms of fevers, chills, nausea, vomiting, increased redness, swelling, pain or drainage from the surgical site, they should notify the office and/or proceed to the nearest emergency room. The patient should follow up in 10-14 days after surgery for their routine post-operative follow-up appointment and should call the office, to confirm the date and time. Status post right total knee arthroplasty POD#1 -Ancef x24 -DVT prophylaxis: SCDs, teds, Lovenox--> Warfarin -Weight-bear as tolerated right lower extremity -PT/OT -Postoperative x-ray demonstrates a well aligned well fixed prosthesis without fracture or dislocation -A.m. labs - as above, hgb 12.2 -DC planning - home with Total Time Total Time Spent Total Time Spent (In Minutes): 30 Discharge Plan Discharge Items Patient Disposition: Home - Home Health Services Reason For Visit: Unilateral Primary Osteoarthritis, Right Knee Discharge Diagnosis: Right total knee replacement Condition on Discharge: Good Activity: Per Instructions section Lifting: Wait until after follow-up appointment Bathing: Keep incision dry Bathing Comment: No bathing, pools or hot tubs. Sexual Activity: Wait until after follow-up appointment Exercise/Sports: Wait until after follow-up appointment Driving/Machine Use: No driving. Weightbearing: Full weightbearing Non-emergency contact: Primary Care Provider and Surgeon Call non-emergency contact if: you have any medication questions, your symptoms worsen, your pain is not controlled, your pain is worsening, your pain is unusual for you, your pain is concerning for you, you have a fever, your temperature is above 101, your wound has increased redness, your wound has increased drainage and your wound pain has increased Follow-up/Referrals: Luca Patel MD [Primary Care Provider] - Diet: Carb Consistent or DM2 Addtl Attending Provider Instructions: ACTIVITY RECOMMENDATIONS: SELF CARE INSTRUCTIONS AFTER TOTAL KNEE REPLACEMENT A. You may need to continue a physical therapy program after discharge from the hospital. There are several options available to you. Your doctor will assist you in selecting the best one for you. 1. An out-patient facility 2 to 3 times a week for therapy or home therapy. 2. Continue working on all exercises taught to you in the hospital. Your goals should be to increase bending of your knee to 90 degrees and beyond and to fully straighten your knee. B. You may progress at your own pace from walking with a walker or crutches to a cane; then to no assistive devices. C. Make walking a part of your daily routine. Be up as much as comfortable with rest periods throughout the day. Rest with leg elevation is very important. Use the ice wrap frequently for the first 3-4 weeks. D. There are no restrictions on activities. 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 E. Wear the long elastic stockings (RAGHU hose) 20 hours a day for 2 weeks after surgery. They can be removed several times a day for laundering and for a bath. F. You may shower, no tub baths until cleared by your doctor. SPECIAL CARE INSTRUCTIONS: VERY IMPORTANT TO READ AND REVIEW A. There are a few signs you need to watch for after you are home. Call [facility] if you notice any of the followin. Increased severe knee pain. Some pain is expected especially when you exercise. 2. Increased swelling in your leg or knee; pain or swelling of the calf muscle in either lower leg. 3. Any fluid drainage from the incision. 4. Shortness of breath or chest pain. B. Please call [facility] at if you have any concerns or questions about your operation or recovery. The doctor or his nurse will return your call promptly. C. You must take antibiotics before dental work, bladder, bowel or other surgery. Your doctor will provide you with a permanent care to carry describing this precaution. IMPORTANT: * REMEMBER TO TAKE LOVENOX AND YOUR HOME MEDICATION, WARFARIN, UNLESS OTHERWISE DIRECTED. THIS IS YOUR BLOOD THINNER. * HIGH RISK PATIENTS MAY BE PRESCRIBED A STRONGER BLOOD THINNER. THIS WILL BE PROVIDED AT DISCHARGE. * CALL IF INCREASED PAIN, REDNESS, DRAINAGE OR FEVER GREATER THAT 101. * WEAR RAGHU HOSE 20 HOURS PER DAY FOR 2 WEEKS. * YOU MAY HAVE A LARGE BAND-AID LIKE DRESSING (SILVERON). THIS WILL REMAIN ON YOUR INCISION FOR 7 DAYS, THEN CAN BE REMOVED. IF INCISION IS LEAKING THROUGH DRESSING, CALL THE OFFICE . FOLLOW UP VISIT: If appointment is not already scheduled: Please call [facility] to make a follow-up appointment for 2 weeks after your surgery at . Pending Studies at Discharge: No Stand-Alone Forms: My [facility], Opioid Pain Management, Smoking Cessation Medications and DC Order Prescriptions: New enoxaparin 60 mg/0.6 mL Syringe 60 mg subcut Q24H Qty: 7 RF: 0 acetaminophen 500 mg Tablet 1,000 mg PO Q8 PRN (Reason: pain/fevers) Qty: 90 RF: 0 oxycodone 5 mg Tablet 5 mg PO Q6H PRN (Reason: pain) Qty: 30 RF: 0 sennosides [Senokot] 8.6 mg Tablet 17.2 mg PO HS PRN (Reason: constipation) Qty: 28 RF: 0 Continued warfarin 7.5 mg Tablet 7.5 mg PO UD RF: 0 aspirin [Aspir-81] 81 mg Tablet,Delayed Release (Dr/Ec) 81 mg PO QAM RF: 0 metoprolol tartrate 50 mg Tablet 25 mg PO BID RF: 0 ascorbic acid (vitamin C) [Vitamin C] 500 mg Capsule, Extended Release 500 mg PO QAM RF: 0 omeprazole 20 mg Capsule,Delayed Release(Dr/Ec) 20 mg PO QAM RF: 0 hydrochlorothiazide 25 mg Tablet 25 mg PO QAM RF: 0 ondansetron 4 mg Tablet,Disintegrating 4 mg PO Q6H PRN (Reason: Nausea) RF: 0 fluticasone propionate 50 mcg/actuation [place],Suspension 1 spray INTRANASAL QAM RF: 0 oxycodone 5 mg Tablet 10 mg PO 5XD RF: 0 pregabalin 150 mg Capsule 150 mg PO BID RF: 0 cholecalciferol (vitamin D3) [Vitamin D3] 50 mcg (2,000 unit) Capsule 50 mcg PO QAM RF: 0 melatonin 10 mg Tablet 10 mg PO HS RF: 0 cyanocobalamin (vitamin B-12) 1,000 mcg Capsule 1,000 mcg PO QAM RF: 0 acetaminophen [Tylenol Arthritis Pain] 650 mg Tablet Extended Release 1,300 mg PO Q12H PRN (Reason: Pain) RF: 0 lactulose 10 gram/15 mL Solution 30 g PO DAILY PRN (Reason: Constipation) RF: 0 warfarin 10 mg Tablet 10 mg PO UD RF: 0 atorvastatin 20 mg Tablet See Rx Instructions .ROUTE .COMPLEX RF: 0 polyvinyl alcohol [Artificial Tears (polyvin alc)] 1.4 % Drops 1 drp QID PRN (Reason: Dry Eyes) RF: 0 sildenafil 100 mg Tablet 100 mg PO DAILY PRN (Reason: Erectile Dysfunction) RF: 0 metformin 1,000 mg Tablet 1,000 mg PO BID RF: 0 lidocaine 5 % Adhesive Patch,Medicated 2 patch TOPICAL DAILY RF: 0 loratadine 10 mg Tablet 10 mg PO DAILY RF: 0 Discharge Orders: Discharge Order (Routine); Ordered 01/28/21 Ordered By: Zenon Peralta/Other Patient Handouts: DVT Post Op Prevention, Managing Type 2 Diabetes, Managing Diabetes: The A1C Test, Enoxaparin injection Admission Data Admit Date/Time: 01/27/21 13:13 Attending Provider: Mino Harper Admit Provider: Mino Harper Primary Care Provider: Luca Patel Other Providers: [facility] Other Interventions: Discharge Summary Assessment (RN) Last Done: 01/28/21 11:22
[2021-01-29] MEDS ORDERED: WARFARIN SOD 7.5 MG TAB PO SCH (16:00)
[2021-01-30] MEDS ORDERED: WARFARIN SOD 10 MG TAB PO SCH (16:00)
== END 2021-01-28 13:20 | disposition home or self-care (01) | DRG 470 ==
LOC: 3N 08:26 → ASU 08:26 → OBSVTOIN 13:13